=== PATIENT | male | born 1955 | race Caucasian/White ===

== ENCOUNTER → 2017-10-17 13:41 | Outpatient (CLI) | payer OTHER | END | disposition home or self-care (01) | LOC: D.LABREF 13:41 | DX: R31.9 Hematuria, unspecified (principal) ==

== ENCOUNTER → 2018-04-02 09:28 | Outpatient (CLI) | payer OTHER | END | disposition home or self-care (01) | LOC: D.HCCARDIO 09:28 | DX: R93.1 Abnormal findings on diagnostic imaging of heart and coronary circulation (principal) ==

== ENCOUNTER 2019-11-06 18:50 | Emergency (ER) | payer OTHER ==
[~2019-11-06] VITALS: Ht 180.3 cm; Wt 104.5 kg
[2019-11-06 19:10] VITALS: Ht 180.3 cm; Wt 104.5 kg
[2019-11-06] MEDS ORDERED: PROSCAR5 MG PO (19:12)
[2019-11-06] MEDS ORDERED: CRESTOR20 MG PO (19:12)
[2019-11-06] MEDS ORDERED: OMEPRAZOLE40 MG PO (19:12)
[2019-11-06] MEDS ORDERED: LISINOPRIL10 MG PO (19:12)
[2019-11-06] MEDS ORDERED: ANDROGEL5 GM TP (19:13)
[2019-11-06 19:48] LABS: BASOPHILS 0.2 % (0-2); EOSINOPHILS 0.7 % (0-7); HEMATOCRIT 48.9 % (42.0-54.0); HEMOGLOBIN 16.7 g/dL (13.5-17.5); IMMATURE GRANULOCYTES 0.2 % (0-5); MCH 29.4 pg (26.0-34.0); MCHC 34.2 g/dL (31.0-37.0); MCV 86.1 fL (80.0-100.0); MEAN PLATELET VOLUME 9.4 fL (7.4-10.4); MONOCYTES 7.9 % (2-11); PLATELET COUNT 193 10x3/uL (130-400); RBC 5.68 10x6/uL (4.20-6.10); RDW 12.5 % (11.5-14.5); WBC 12.1 10x3/uL (4.8-10.8)
[2019-11-06 19:52] LABS: BILIRUBIN NEGATIVE (NEGATIVE); KETONE NEGATIVE (NEGATIVE); NITRITE NEGATIVE (NEGATIVE); UROBILINOGEN NORMAL mg/dL (< 2)
[2019-11-06 19:53] LABS: BACTERIA MANY HPF (NONE SEEN)
[2019-11-06 20:05] LABS: ANION GAP 13.2 mmol/L (8-16); CARBON DIOXIDE 25.4 mmol/L (21.0-32.0); CREATININE - SERUM 1.4 mg/dL (0.6-1.3); POTASSIUM - SERUM 3.6 mmol/L (3.5-5.1)
[2019-11-06 20:10] LABS: ALBUMIN 3.8 g/dL (3.4-5.0); BILIRUBIN - TOTAL 1.38 mg/dL (0.2-1.3); C-REACTIVE PROTEIN 12.8 mg/dL (0.0-0.9); PROTEIN - SERUM 7.7 g/dL (6.4-8.2)
[2019-11-06 23:00] VITALS: BP 108/68
[2019-11-06] MEDS ORDERED: CIPRO500 MG PO (23:16)
== END 2019-11-06 23:31 | disposition home or self-care (01) ==
LOC: D.ER 18:50
PROVIDERS: Family Medicine
DX: R50.9 Fever, unspecified (principal); N41.0 Acute prostatitis; I10 Essential (primary) hypertension; E78.5 Hyperlipidemia, unspecified

== ENCOUNTER → 2019-11-22 19:44 | Outpatient (CLI) | payer OTHER ==
[2019-11-06 19:10] VITALS: BMI 32.1
[~2019-11-22 19:44] MED LIST: ANDROGEL5 GM TP; CIPRO500 MG PO; CRESTOR20 MG PO; LISINOPRIL10 MG PO; OMEPRAZOLE40 MG PO; PROSCAR5 MG PO
== END | disposition home or self-care (01) ==
LOC: D.LABREF 19:44
PROVIDERS: ATTEND Urology
DX: R31.9 Hematuria, unspecified (principal); R82.90 Unspecified abnormal findings in urine